=== PATIENT | female | born 1965 | race Caucasian/White ===

== ENCOUNTER 2019-01-17 14:06 | Observation (INO) ==
--- NOTE | 2019-01-17 14:17 | Emergency Department Note ---
Disposition Clinical Impression: AMS (altered mental status), Hyperglycemia Disposition: Admitted As Inpatient Condition: Fair Referrals: Ramon Taveras, [employer] [Primary Care Provider] - Forms: ED Satisfaction Letter Time of Disposition: 15:57 Neuro HPI - General Chief Complaint: ED Neuro Symptoms/Deficit Stated Complaint: weakness to right side, elevated glucose Time Seen by Provider: 01/17/19 14:09 Source: patient, family Mode of arrival: wheelchair Limitations: language barrier, altered mental status Nursing Notes Reviewed: Yes Vital Signs Reviewed: Yes - History of Present Illness HPI Narrative: Patient was apparently in route to her doctor's office visit when apparently 30 minutes prior to arrival she had a sudden onset of infusion difficulty speaking the son noticed that she was having marked weakness of the right hand side of the body. When they got to the doctor's office they did not immediate Accu-Chek was 330 something as was told to stay brought her into the ER in a wheelchair is brought over by the nurse practitioner directly to the ER. Upon arrival here to the emergency room the patient is confused her son tells us that this began about half an hour prior to arrival here to the ER is having trouble talking to us she is unable to follow commands her speech is slurred unable to specifically determine etiologies of what is going on at this time with the patient. Information is obtained through her son apparently sometime at about 4:00 after we had already worked the patient he advised that she had fallen out of bed and laid on the floor for an unknown period time until they got her back up in the bed but it was not until prior to arrival that she had the altered mental status and weakness side of the body. When her sugar was noted to be over 500 mL states that this happened once or and she ended up being in the hospital for a week and the same process had been determined at that time where she was worked up for possibility of a stroke. Patient son tells us though that she was at her baseline this morning until just prior to arrival and that she is only been out of her medications for less than 24 hours why they were going to the doctor's office all other systems have been reviewed and otherwise negative - Related Data Home Medications: Home Medications Medication Instructions Recorded Confirmed Citalopram [CeleXA] 20 mg PO DAILY 12/16/16 01/17/19 Gabapentin [Neurontin] 600 mg PO TID 12/16/16 01/17/19 Nitroglycerin [Nitrostat] 0.4 mg SL AD PRN 12/16/16 01/17/19 Tizanidine HCl [Zanaflex] 4 mg PO TID 12/16/16 01/17/19 Amitriptyline [Elavil] 50 mg PO HS 01/17/19 01/17/19 Amlodipine Besylate 10 mg PO DAILY 01/17/19 01/17/19 Aspirin [Lo-Dose Aspirin EC] 81 mg PO DAILY 01/17/19 01/17/19 Atorvastatin [Lipitor] 40 mg PO HS 01/17/19 01/17/19 BuPROPion XL (24 HR) [Wellbutrin 150 mg PO DAILY 01/17/19 01/17/19 XL] Cholecalciferol (D-3) [Vitamin D] 5,000 unit PO QWEEK 01/17/19 01/17/19 Exenatide Microspheres [Bydureon 2 mg SQ QWEEK 01/17/19 01/17/19 Pen] Imipramine HCl [Tofranil] 50 mg PO HS 01/17/19 01/17/19 Insulin ASPART [Novolog] 20 unit SQ TID 01/17/19 01/17/19 Insulin Glargine,Hum.rec.anlog 50 unit SQ HS 01/17/19 01/17/19 [Reginald Parekh] Lisinopril-HCTZ 20-12.5 [Prinzide 1 each PO DAILY 01/17/19 01/17/19 20-12.5] Metoprolol [Lopressor] 25 mg PO BID 01/17/19 01/17/19 [place]-3/Dha/Epa/Fish Oil [Fish Oil 1 each PO BID 01/17/19 01/17/19 1,000 mg Softgel] Ranitidine HCl [Acid Soyfreeze Operator] 150 mg PO BID 01/17/19 01/17/19 amLODIPine [Norvasc] 10 mg PO DAILY 01/17/19 01/17/19 buPROPion HCl [Zyban] 150 mg PO DAILY 01/17/19 01/17/19 hydrOXYzine HCl [Hydroxyzine HCl] 25 mg PO Q8H PRN 01/17/19 01/17/19 metFORMIN [Glucophage] 1,000 mg PO BIDWM 01/17/19 01/17/19 Allergies/Adverse Reactions: Allergies Allergy/AdvReac Type Severity Reaction Status Date / Time No Known Allergies Allergy Verified 10/31/16 21:39 All systems ED: reviewed and negative except as stated. Review of Systems: As Per HPI Constitutional: Reports: weakness. Denies: fever, chills Eyes: Denies: eye pain, eye discharge ENT ED: Reports: dysphagia. Denies: ear pain, throat pain Cardiovascular: Denies: chest pain, palpitations Respiratory: Denies: cough, dyspnea Gastrointestinal: Denies: abdominal pain, nausea, vomiting Genitourinary: Denies: urgency, dysuria Musculoskeletal: Denies: back pain Integumentary: Denies: rash, abrasion Neurological: Reports: headache, weakness, confusion Psychiatric: Denies: anxiety, depression Endocrine: Denies: fatigue Hematological/Lymphatic: Denies: easy bleeding Allergic/Immunologic: Denies: facial swelling Past Medical History - Past Medical History Attestation: Yes The following information was validated with the patient. 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 - Social History Smoking Status: Former smoker Smokeless Tobacco Status: No Alcohol use: Reports: none Drug use: Reports: none Physical Exam - General Limitations: altered mental status General appearance: alert, obtunded, in distress, obese - Head Head exam: atraumatic, normocephalic, normal inspection - Eye Eye exam: Present: normal appearance, PERRL, EOMI - ENT ENT exam: normal exam, normal oropharynx, mucous membranes moist, TM's normal bilaterally, normal external ear exam - Neck Neck exam: Present: normal inspection, full ROM, trachea midline - Chest Chest inspection: Present: normal inspection, symmetric chest wall rise - Respiratory Respiratory exam: Present: normal lung sounds bilaterally - Cardiovascular Cardiovascular exam: Present: regular rate, normal rhythm, normal heart sounds - Abdominal Exam Abdominal exam: Present: soft, Non-Tender, normal bowel sounds. Absent: mass, pulsatile mass - Extremities Exam Extremities exam: Present: normal inspection, normal capillary refill. Absent: tenderness, joint swelling, calf tenderness - Expanded Upper Extremity Exam Shoulder exam: Present: normal inspection Arm exam: Present: normal inspection Elbow exam: Present: normal inspection Forearm/Wrist exam: Present: normal inspection Hand exam: Present: normal inspection Neurosensory exam: Normal: radial nerve, ulnar nerve Vascular exam: Normal: capillary refill, radial pulse - Expanded Lower Extremity Exam Hip/Pelvis exam: Present: normal inspection. Absent: tenderness, swelling, abrasion, laceration Upper leg exam: Present: normal inspection Knee exam: Present: normal inspection Lower leg exam: Present: normal inspection Ankle exam: Present: normal inspection Foot/toe exam: Present: normal inspection Neurovascular/Tendon exam: Present: normal capillary refill, normal fine/light touch. Absent: motor deficit, sensory deficit, tendon deficit Gait: observed and normal - Back Exam Back exam: Present: normal inspection, full ROM. Absent: muscle spasm - Neurological Exam Neurological exam: Present: alert, motor sensory deficit, other (lethargic) - Psychiatric Psychiatric exam: Present: flat affect - Skin Skin exam: Present: warm, dry, intact, normal color - Other Other exam information: Morbidly obese female her speech is slurred having difficulty talking has trouble getting her words across of what she is trying to say when told to put her finger to her nose she is unable to process this she appears to be markedly confused right size to be slightly weaker than the left on examination she has little bit of a drift in the right leg to have it back down to the bed but 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 I spoke to [facility] and Dr. 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 Ng and he agreed with myself at thrombolytics at this time would not be appropriate because she appears to be back at her baseline it was most likely secondary to a hypoglycemic event patient is agreeable for patient is transferred to [facility] for further management I have spoke with Dr. Castro and Vital Signs Temperature 98 F 01/17/19 14:09 Pulse Rate 129 01/17/19 14:09 Respiratory Rate 22 01/17/19 14:09 Blood Pressure 154/92 01/17/19 14:09 O2 Sat by Pulse Oximetry 94 01/17/19 14:09 Temperature 98 F 01/17/19 14:09 Pulse Rate 88 01/17/19 15:37 Respiratory Rate 18 01/17/19 15:37 Blood Pressure 167/92 01/17/19 15:37 O2 Sat by Pulse Oximetry 94 01/17/19 15:37 Oxygen Delivery Oxygen Delivery Room Air Neuro Symptoms/Deficit - Differential Diagnosis Likely: cerebrovascular accident - Medical Records Medical records reviewed: Yes I reviewed the patient's medical records. - Lab Data Lab results reviewed: Yes I reviewed the patient's lab results. Result diagrams: 01/17/19 14:27 01/17/19 14:27 Lab Results 01/17/19 01/17/19 01/17/19 Range/Units 14:27 14:27 14:27 WBC 8.0 (4.3-11.1) K/mcL RBC 4.63 (3.82-4.97) M/mcL Hgb 14.0 (11.5-15.4) g/dL Hct 40.1 (35.3-44.9) % MCV 86.6 (83.0-100.0) fL MCH 30.2 (28.0-33.3) pg MCHC 34.9 (31.6-35.5) g/dL RDW 12.2 (11.5-14.5) % Plt Count 243 (140-400) K/mcL MPV 10.9 (9.4-12.4) fL Immature Gran % 0.7 (0-4) % Seg Neutrophils % 62.5 % Lymphocytes % 26.6 % Monocytes % 8.2 % Eosinophils % 1.5 % Basophils % 0.5 % Neutrophils # 5.0 (1.6-8.9) K/mcL Lymphocytes # 2.1 (0.6-4.6) K/mcL Monocytes # 0.7 (0.0-1.3) K/mcL Eosinophils # 0.1 (0.0-0.6) K/mcL Basophils # 0.0 (0.0-0.2) K/mcL PT 9.8 (9.4-12.1) Seconds INR 0.9 APTT 32.6 (26.0-36.0) Seconds Sodium (136-145) mEq/L Potassium (3.5-5.1) mEq/L Chloride (98-107) mEq/L Carbon Dioxide (23-29) mEq/L BUN (6-20) mg/dL Creatinine (0.60-1.20) mg/dL Est GFR ( Amer) (> 60) Est GFR (Non-Af Amer) (> 60) BUN/Creatinine Ratio (6-26) Glucose (70-105) mg/dL Calculated Osmolality (280-300) Calcium (8.6-10.3) mg/dL Phosphorus (2.7-4.5) mg/dL Magnesium (1.6-2.6) mg/dL Total Bilirubin (0.3-1.0) mg/dL AST (13-39) Units/L ALT (7-52) Units/L Alkaline Phosphatase (34-104) Units/L Troponin I (< 0.04) ng/mL Serum Total Protein (6.4-8.9) g/dL Albumin (3.5-5.7) g/dL Globulin (2.4-3.5) g/dL Albumin/Globulin Ratio (1.1-2.2) TSH (0.340-5.600) mcIU/mL Urine Color (Yellow) Urine Clarity (Clear) Urine pH (5.0-8.0) pH Units Ur Specific [place] (1.010-1.025) Urine Protein (Neg-Trace) mg/dL Urine Glucose (UA) (Normal) mg/dL Urine Ketones (Negative) mg/dL Urine Blood (Negative) Urine Nitrite (Negative) Urine Bilirubin (Negative) Urine Urobilinogen (Normal) mg/dL Ur Leukocyte Esterase (Negative) Urine Microscopic RBC (0-3) per hpf Urine Microscopic WBC (0-3) per hpf Ur Squamous Epith Cells (None-Few) per lpf Amorphous Sediment (Few) Urine Bacteria (None-Few) per hpf Urine Mucus (Few) Ur Culture Indicated? (NO) Urine Opiates Screen (Mulfhr=067) ng/mL Ur Buprenorphine Scrn (Cutoff=5) ng/mL Ur Oxycodone Screen (Cutoff= 100) ng/mL Ur Barbiturates Screen (Uusqyv=550) ng/mL Ur Phencyclidine Scrn (Cutoff=25) ng/mL Ur Amphetamines Screen (Jfdfio=6768) ng/mL U Benzodiazepines Scrn (Umjfjo=305) ng/mL Urine Cocaine Screen (Cutoff= 300) ng/mL U Marijuana (THC) Screen (Cutoff = 50) ng/mL Ur Drug Screen Interp 01/17/19 01/17/19 01/17/19 Range/Units 14:27 14:27 14:56 WBC (4.3-11.1) K/mcL RBC (3.82-4.97) M/mcL Hgb (11.5-15.4) g/dL Hct (35.3-44.9) % MCV (83.0-100.0) fL MCH (28.0-33.3) pg MCHC (31.6-35.5) g/dL RDW (11.5-14.5) % Plt Count (140-400) K/mcL MPV (9.4-12.4) fL Immature Gran % (0-4) % Seg Neutrophils % % Lymphocytes % % Monocytes % % Eosinophils % % Basophils % % Neutrophils # (1.6-8.9) K/mcL Lymphocytes # (0.6-4.6) K/mcL Monocytes # (0.0-1.3) K/mcL Eosinophils # (0.0-0.6) K/mcL Basophils # (0.0-0.2) K/mcL PT (9.4-12.1) Seconds INR APTT (26.0-36.0) Seconds Sodium 129 L (136-145) mEq/L Potassium 4.0 (3.5-5.1) mEq/L Chloride 94 L (98-107) mEq/L Carbon Dioxide 22 L (23-29) mEq/L BUN 24 H (6-20) mg/dL Creatinine 0.98 (0.60-1.20) mg/dL Est GFR ( Amer) > 60 (> 60) Est GFR (Non-Af Amer) 60 (> 60) BUN/Creatinine Ratio 24 (6-26) Glucose 677 H* (70-105) mg/dL Calculated Osmolality 304 H (280-300) Calcium 9.0 (8.6-10.3) mg/dL Phosphorus 3.3 (2.7-4.5) mg/dL Magnesium 1.7 (1.6-2.6) mg/dL Total Bilirubin 0.4 (0.3-1.0) mg/dL AST 14 (13-39) Units/L ALT 25 (7-52) Units/L Alkaline Phosphatase 102 (34-104) Units/L Troponin I < 0.03 (< 0.04) ng/mL Serum Total Protein 7.2 (6.4-8.9) g/dL Albumin 3.8 (3.5-5.7) g/dL Globulin 3.4 (2.4-3.5) g/dL Albumin/Globulin Ratio 1.1 (1.1-2.2) TSH 1.471 (0.340-5.600) mcIU/mL Urine Color Yellow (Yellow) Urine Clarity Slightly Cloudy A (Clear) Urine pH 6.0 (5.0-8.0) pH Units Ur Specific [place] <= 1.005 L (1.010-1.025) Urine Protein 30 H (Neg-Trace) mg/dL Urine Glucose (UA) >=1000 H (Normal) mg/dL Urine Ketones Negative (Negative) mg/dL Urine Blood Moderate H (Negative) Urine Nitrite Negative (Negative) Urine Bilirubin Negative (Negative) Urine Urobilinogen Normal (Normal) mg/dL Ur Leukocyte Esterase Negative (Negative) Urine Microscopic RBC 5-15 H (0-3) per hpf Urine Microscopic WBC 0-3 (0-3) per hpf Ur Squamous Epith Cells Few (None-Few) per lpf Amorphous Sediment Few (Few) Urine Bacteria Many H (None-Few) per hpf Urine Mucus Few (Few) Ur Culture Indicated? YES A (NO) Urine Opiates Screen (Lfesfx=091) ng/mL Ur Buprenorphine Scrn (Cutoff=5) ng/mL Ur Oxycodone Screen (Cutoff= 100) ng/mL Ur Barbiturates Screen (Fupkrd=291) ng/mL Ur Phencyclidine Scrn (Cutoff=25) ng/mL Ur Amphetamines Screen (Rvrrsq=6165) ng/mL U Benzodiazepines Scrn (Findem=230) ng/mL Urine Cocaine Screen (Cutoff= 300) ng/mL U Marijuana (THC) Screen (Cutoff = 50) ng/mL Ur Drug Screen Interp 01/17/19 Range/Units 14:56 WBC (4.3-11.1) K/mcL RBC (3.82-4.97) M/mcL Hgb (11.5-15.4) g/dL Hct (35.3-44.9) % MCV (83.0-100.0) fL MCH (28.0-33.3) pg MCHC (31.6-35.5) g/dL RDW (11.5-14.5) % Plt Count (140-400) K/mcL MPV (9.4-12.4) fL Immature Gran % (0-4) % Seg Neutrophils % % Lymphocytes % % Monocytes % % Eosinophils % % Basophils % % Neutrophils # (1.6-8.9) K/mcL Lymphocytes # (0.6-4.6) K/mcL Monocytes # (0.0-1.3) K/mcL Eosinophils # (0.0-0.6) K/mcL Basophils # (0.0-0.2) K/mcL PT (9.4-12.1) Seconds INR APTT (26.0-36.0) Seconds Sodium (136-145) mEq/L Potassium (3.5-5.1) mEq/L Chloride (98-107) mEq/L Carbon Dioxide (23-29) mEq/L BUN (6-20) mg/dL Creatinine (0.60-1.20) mg/dL Est GFR ( Amer) (> 60) Est GFR (Non-Af Amer) (> 60) BUN/Creatinine Ratio (6-26) Glucose (70-105) mg/dL Calculated Osmolality (280-300) Calcium (8.6-10.3) mg/dL Phosphorus (2.7-4.5) mg/dL Magnesium (1.6-2.6) mg/dL Total Bilirubin (0.3-1.0) mg/dL AST (13-39) Units/L ALT (7-52) Units/L Alkaline Phosphatase (34-104) Units/L Troponin I (< 0.04) ng/mL Serum Total Protein (6.4-8.9) g/dL Albumin (3.5-5.7) g/dL Globulin (2.4-3.5) g/dL Albumin/Globulin Ratio (1.1-2.2) TSH (0.340-5.600) mcIU/mL Urine Color (Yellow) Urine Clarity (Clear) Urine pH (5.0-8.0) pH Units Ur Specific [place] (1.010-1.025) Urine Protein (Neg-Trace) mg/dL Urine Glucose (UA) (Normal) mg/dL Urine Ketones (Negative) mg/dL Urine Blood (Negative) Urine Nitrite (Negative) Urine Bilirubin (Negative) Urine Urobilinogen (Normal) mg/dL Ur Leukocyte Esterase (Negative) Urine Microscopic RBC (0-3) per hpf Urine Microscopic WBC (0-3) per hpf Ur Squamous Epith Cells (None-Few) per lpf Amorphous Sediment (Few) Urine Bacteria (None-Few) per hpf Urine Mucus (Few) Ur Culture Indicated? (NO) Urine Opiates Screen Negative (Epppct=141) ng/mL Ur Buprenorphine Scrn Negative (Cutoff=5) ng/mL Ur Oxycodone Screen Negative (Cutoff= 100) ng/mL Ur Barbiturates Screen Negative (Retpjm=708) ng/mL Ur Phencyclidine Scrn Negative (Cutoff=25) ng/mL Ur Amphetamines Screen Negative (Ifwqsz=2074) ng/mL U Benzodiazepines Scrn Negative (Qkobqr=305) ng/mL Urine Cocaine Screen Negative (Cutoff= 300) ng/mL U Marijuana (THC) Screen Negative (Cutoff = 50) ng/mL Ur Drug Screen Interp See Below - Radiology Data Radiology results reviewed: Yes I reviewed the patient's radiology results. ITS Impressions Chest X-Ray 01/17/19 14:28 IMPRESSION: No acute cardiopulmonary disease. D/ /17/2019 15:14:04 Sean Salazar MD / braxton Interpreting Provider: Sean Salazar MD Head CT 01/17/19 14:28 IMPRESSION: 1. No acute intracranial abnormality. 2. Cerebral and cerebellar parenchymal volume loss with chronic microvascular white matter ischemic disease. Results were discussed with Dr. Headley at 1431 hours on 01/17/2019. D/ /17/2019 15:15:46 Umang Greenfield MD / braxton Interpreting Provider: Umang Greenfield MD - EKG Data EKG attestation: Yes I reviewed and interpreted this EKG. EKG results narrative: Sinus tach rate 128 IN 131 QRS 86 QT [address] segment elevation ischemic or injury pattern noted nonspecific T-wave changes related to rate NIH Stroke Scale - Level of Consciousness LOC: Drowsy, but arousable - LOC Questions LOC Questions: Answers both incorrectly - LOC Commands LOC Commands: Performs one correctly - Best Gaze Best Gaze: Partial gaze palsy - Visual Visual: Partial hemianopia - Facial Palsy Facial Palsy: Minor asymmetry on smiling, flattened nasolabial fold - Motor Arms Motor Arm-Left: No drift for 10 seconds Motor Arm-Right: Drift, does NOT hit bed - Motor Legs Motor Leg-Left: No drift for 5 seconds Motor Leg-Right: Some effort against gravity, limb drifts to bed - Limb Ataxia Limb Ataxia: Present in ONE limb - Sensory Sensory: Normal - Best Language Best Language: Severe aphasia. Examiner CAN NOT identify pictures from response - Dysarthria Dysarthria: Mild, slurs some words - Extinction and Inattention Extinction and Inattention: Inattention or extinction in ONE modality - NIHSS Total Score NIHSS Total Score: 15 TPA Checklist - LKW: 3-4.5 hrs Add. Warnings/Precautions Patient/family understanding: The patient/family members have been counseled and understood the risk, benefit, and alternatives of treatment. Critical Care Time Critical Care Time: Yes Total Critical Care Time: 45 Attestation: High probability clinically significant life-threatening deterioration is patient's condition is one the result patient being hyperglycemic strokelike presentation stroke alert being activated discussion and consultation with neuroradiology at [facility] for further care evaluation management of this patient and discussion with Dr. Castro for admission
[2019-01-17] MEDS ORDERED: 0.9 % Sodium Chloride 2,000 ML ONE (14:35)
[2019-01-17 14:36] LABS: Basophils % 0.5 %; Eosinophils # 0.1 K/mcL (0.0-0.6); Eosinophils % 1.5 %; Hematocrit 40.1 % (35.3-44.9); Immature Granulocytes % 0.7 % (0-4); Lymphocytes # 2.1 K/mcL (0.6-4.6); Lymphocytes % 26.6 %; Mean Corpuscular HGB Conc 34.9 g/dL (31.6-35.5); Mean Corpuscular Hemoglobin 30.2 pg (28.0-33.3); Mean Corpuscular Volume 86.6 fL (83.0-100.0); Mean Platelet Volume 10.9 fL (9.4-12.4); Monocytes # 0.7 K/mcL (0.0-1.3); Monocytes % 8.2 %; Platelet Count 243 K/mcL (140-400); Red Blood Count 4.63 M/mcL (3.82-4.97); Red Cell Distribution Width 12.2 % (11.5-14.5); Segmented Neutrophils % 62.5 %
[2019-01-17 14:42] LABS: INR 0.9; Prothrombin Time 9.8 Seconds (9.4-12.1)
[2019-01-17] MEDS ORDERED: Insulin Human Regular 10 UNIT in 0.9 % Sodium Chloride 10 ML IV ONE (14:45)
[2019-01-17] MEDS ORDERED: ALTEPLASE IVPB ONE ×2 (14:47)
[2019-01-17] MEDS ORDERED: LOK IVPB ONE (14:47)
[2019-01-17 14:55] LABS: Troponin I < 0.03 ng/mL (< 0.04)
[2019-01-17 14:58] LABS: Alanine Aminotransferase 25 Units/L (7-52); Albumin 3.8 g/dL (3.5-5.7); Albumin/Globulin Ratio 1.1 (1.1-2.2); Alkaline Phosphatase 102 Units/L (34-104); Aspartate Amino Transferase 14 Units/L (13-39); BUN/Creatinine Ratio 24 (6-26); Bilirubin,Total 0.4 mg/dL (0.3-1.0); Blood Urea Nitrogen 24 mg/dL (6-20); Carbon Dioxide 22 mEq/L (23-29); Chloride 94 mEq/L (98-107); Globulin 3.4 g/dL (2.4-3.5); Glucose 677 mg/dL (70-105); Magnesium 1.7 mg/dL (1.6-2.6); Osmolality,Calculated 304 (280-300); Phosphorous 3.3 mg/dL (2.7-4.5); Sodium 129 mEq/L (136-145); Total Protein 7.2 g/dL (6.4-8.9); eGFR For African Americans > 60 (> 60); eGFR For Non-African Americans 60 (> 60)
[2019-01-17 15:00] LABS: Bilirubin,Urine Negative (Negative); Blood,Urine Moderate (Negative); Clarity,Urine Slightly Cloudy (Clear); Color,Urine Yellow (Yellow); Glucose,Urine (UA) >=1000 mg/dL (Normal); Ketones,Urine Negative (Negative); Leukocyte Esterase,Urine Negative (Negative); Nitrite,Urine Negative (Negative); Protein,Urine 30 mg/dL (Neg-Trace); Specific Gravity,Urine <= 1.005 (1.010-1.025); Urobilinogen,Urine Normal (Normal)
[2019-01-17 15:06] LABS: Thyroid Stimulating Hormone 1.471 mcIU/mL (0.340-5.600)
[2019-01-17 15:10] LABS: Amorphous Sediment,Urine Few (Few); Amphetamine Screen,Urine Negative ng/mL (Cutoff=1000); Bacteria,Urine Many per hpf (None-Few); Barbiturate Screen,Urine Negative ng/mL (Cutoff=200); Benzodiazepines Screen,Urine Negative ng/mL (Cutoff=200); Cannabinoid Screen,Urine Negative ng/mL (Cutoff = 50); Cocaine Screen,Urine Negative ng/mL (Cutoff= 300); Opiate Screen,Urine Negative ng/mL (Cutoff=300); Phencyclidine Screen,Urine Negative ng/mL (Cutoff=25); Squamous Epithelial Cell,Urine Few per lpf (None-Few); WBC,Urine 0-3 per hpf (0-3)
[2019-01-17 15:12] LABS: Mucus,Urine Few (Few)
[2019-01-17] MEDS ORDERED: Ketorolac 30 MG/ML VIAL IVP ONE (17:30)
[2019-01-17] MEDS ORDERED: Naloxone 0.4 MG/ML INJ IVP PRN (19:24)
[2019-01-17] MEDS ORDERED: *HR* Dextrose 50 % in Water (Syg) 50 ML SYRINGE IVP PRN (19:24)
[2019-01-17] MEDS ORDERED: Nitroglycerin 0.4 MG TAB.SUBL SL PRN (19:24)
[2019-01-17] MEDS ORDERED: hydrOXYzine pamoate 25 MG CAPSULE PO PRN (19:24)
[2019-01-17] MEDS ORDERED: Dextrose Gel 15 GM/37.5 ML TUBE PO PRN ×2 (19:24)
[2019-01-17] MEDS ORDERED: D5% in Water 1,000 ML IVC PRN (19:24)
[2019-01-17] MEDS ORDERED: NON-FORMULARY MEDICATION 1 EACH EACH (Exenatide Microspheres [Bydureon Pen] 2 MG) SQ SCH (19:24)
[2019-01-17] MEDS ORDERED: Ondansetron 4 MG/2 ML VIAL IVP PRN (19:24)
[2019-01-17] MEDS: Famotidine 20 MG TABLET PO SCH (20:43)
[2019-01-17] MEDS: Gabapentin 300 MG CAPSULE PO SCH (20:43)
[2019-01-17] MEDS: tiZANidine 4 MG TABLET PO SCH (20:43)
[2019-01-17] MEDS: 0.9 % Sodium Chloride 1,000 ML IVC SCH (20:44)
[2019-01-17] MEDS: (Omega-3/Dha/Epa/Fish Oil [Fish Oil 1,000 Mg Softgel]) PO SCH (20:44)
[2019-01-17] MEDS: *HR* Metformin 500 MG TABLET PO SCH (20:50)
[2019-01-17] MEDS ORDERED: Insulin DETEMIR 100 UNIT/ML per UNIT SQ ONE (21:00)
[2019-01-17] MEDS ORDERED: INSULIN GLARGINE HUM REC ANLOG SQ SCH (21:00)
[2019-01-17] MEDS ORDERED: INSULIN ASPART 20 UNIT SQ SCH (21:00)
[2019-01-17] MEDS ORDERED: [UNRECOGNIZED DRUG - OTHER] SQ SCH (21:00)
[2019-01-18] MEDS: 0.9 % Sodium Chloride 1,000 ML IVC SCH (04:43)
[2019-01-18 06:26] LABS: Basophils % 0.4 %; Eosinophils # 0.2 K/mcL (0.0-0.6); Eosinophils % 1.8 %; Hematocrit 36.3 % (35.3-44.9); Hemoglobin 12.4 g/dL (11.5-15.4); Immature Granulocytes % 0.5 % (0-4); Lymphocytes % 30.7 %; Mean Corpuscular HGB Conc 34.2 g/dL (31.6-35.5); Mean Corpuscular Hemoglobin 30.1 pg (28.0-33.3); Mean Corpuscular Volume 88.1 fL (83.0-100.0); Mean Platelet Volume 11.5 fL (9.4-12.4); Monocytes # 0.8 K/mcL (0.0-1.3); Monocytes % 8.2 %; Neutrophils # 5.7 K/mcL (1.6-8.9); Platelet Count 245 K/mcL (140-400); Red Blood Count 4.12 M/mcL (3.82-4.97); Red Cell Distribution Width 12.1 % (11.5-14.5); Segmented Neutrophils % 58.4 %; White Blood Count 9.8 K/mcL (4.3-11.1)
[2019-01-18 07:01] LABS: Prothrombin Time 11.4 Seconds (9.4-12.1)
[2019-01-18 07:04] LABS: Activated Partial Thrombo Time 31.2 Seconds (26.0-36.0)
[2019-01-18 07:30] LABS: BUN/Creatinine Ratio 25 (6-26); Blood Urea Nitrogen 16 mg/dL (6-20); Calcium 8.1 mg/dL (8.6-10.3); Carbon Dioxide 24 mEq/L (23-29); Chloride 105 mEq/L (98-107); Glucose 269 mg/dL (70-105); Osmolality,Calculated 297 (280-300); Potassium 3.4 mEq/L (3.5-5.1); Sodium 138 mEq/L (136-145); eGFR For African Americans > 60 (> 60); eGFR For Non-African Americans > 60 (> 60)
[2019-01-18] MEDS: Insulin LISPRO 300 UNITS/3 ML VIAL SQ SCH ×3 (08:38→16:02)
[2019-01-18] MEDS: *HR* Metformin 500 MG TABLET PO SCH ×2 (08:39→16:02)
[2019-01-18] MEDS: Gabapentin 300 MG CAPSULE PO SCH ×3 (08:39→21:50)
[2019-01-18] MEDS: Aspirin Enteric Coated 81 MG Tablet PO SCH (08:39)
[2019-01-18] MEDS: Famotidine 20 MG TABLET PO SCH ×2 (08:40→21:50)
[2019-01-18] MEDS: hydroCHLOROthiazide 25 MG TABLET PO SCH (08:40)
[2019-01-18] MEDS: (Omega-3/Dha/Epa/Fish Oil [Fish Oil 1,000 Mg Softgel]) PO SCH ×2 (08:40→21:51)
[2019-01-18] MEDS: tiZANidine 4 MG TABLET PO SCH ×3 (08:40→21:51)
[2019-01-18] MEDS: BuPROPion XL (24 HR) 150 MG TABLET PO SCH (08:40)
[2019-01-18] MEDS: Cholecalciferol (D-3) 1,000 UNIT (25MCG) TABLET PO SCH (08:40)
[2019-01-18] MEDS: Lisinopril 20 MG TABLET PO SCH (08:40)
[2019-01-18] MEDS: amLODIPine 5 MG TABLET PO SCH (08:40)
[2019-01-18] MEDS ORDERED: BuPROPion XL (24 HR) 150 MG TABLET PO SCH (09:00)
[2019-01-18] MEDS ORDERED: NON-FORMULARY MEDICATION 1 EACH EACH (Amlodipine Besylate 10 MG) PO SCH (09:00)
[2019-01-18] MEDS ORDERED: Lisinopril-HCTZ 20-12.5mg TABLET PO SCH (09:00)
[2019-01-18 13:15] LABS: Estimated Average Glucose 301 mg/dl
--- NOTE | 2019-01-18 13:55 | Electrocardiograph Report ---
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
--- NOTE | 2019-01-18 14:27 | Internal Med History&Physical ---
Date of Encounter: 01/18/19 Time of Encounter: 12:15 Assessment and Plan (1) AMS (altered mental status) Current visit: Yes Status: Resolved Now appears back to baseline mental status with appropriate conversation and behavior. AMS likely due to hyperglycemia. Continue to monitor. Qualifiers: Altered mental status type: unspecified Qualified Code(s): R41.82 - Altered mental status, unspecified (2) Hyperglycemia Current visit: Yes Status: Acute Continue Glucophage, basal insulin, and Accu-Cheks with SSI. (3) DM type 2 (diabetes mellitus, type 2) Current visit: Yes Status: Chronic Poorly controlled. Hemoglobin A1c significantly elevated at 12.1%. Basal insulin dose will be increased. Continue Glucophage and weekly Bydureon. Qualifiers: Diabetes mellitus halfway insulin use: with termite control servicer use Diabetes mellitus complication status: without complication Qualified Code(s): E11.9 - Type 2 diabetes mellitus without complications; Z79.4 - long-term (current) use of insulin (4) Hypertension Current visit: Yes Status: Chronic Continue Norvasc, HCTZ, lisinopril, and Lopressor. Qualifiers: Hypertension type: essential hypertension Qualified Code(s): I10 - Essential (primary) hypertension (5) CAD (coronary artery disease) Current visit: Yes Status: Chronic Continue aspirin and Lopressor. Qualifiers: Coronary Disease-Associated Artery/Lesion type: [place] artery [place] vs. transplanted heart: [place] heart Associated angina: without angina Qualified Code(s): I25.10 - Atherosclerotic heart disease of [place] coronary artery without angina pectoris (6) GERD (gastroesophageal reflux disease) Current visit: Yes Status: Acute Continue symptomatic treatment as needed. Qualifiers: Esophagitis presence: esophagitis presence not specified Qualified Code(s): K21.9 - Gastro-esophageal reflux disease without esophagitis (7) Diabetic peripheral neuropathy Current visit: Yes Status: Acute Continue Neurontin and Elavil. (8) Hyperlipidemia Current visit: Yes Status: Chronic Continue Lipitor. Qualifiers: Hyperlipidemia type: unspecified Qualified Code(s): E78.5 - Hyperlipidemia, unspecified (9) Anxiety and depression Current visit: Yes Status: Acute Continue Celexa, Elavil, Wellbutrin, bupropion, and hydroxyzine. Internal Medicine - H&P: HPI Chief complaint: Altered mental status, weakness, hyperglycemia Admitted From: Emergency Dept Plans for Post Hospital Care: Home History of present illness: Ms. Shen is a 53 year old female who was sent to emergency room from her PCP office after she presented reporting she had fallen twice earlier in the day and had overall weakness with lightheadedness. She appeared to be confused. She was evaluated in emergency room and underwent stroke alert evaluation. Further workup showed blood glucose 677. She was treated for hyperglycemia with improvement in mentation and overall clinical status. She was admitted to [facility] floor for ongoing care needs. She was diagnosed with DM 2 approximately 2013. She reports checking her blood sugar approximately 4 times weekly with readings generally above 300 MG/DL. She admits she has missed several doses of her NovoLog insulin as well as basal insulin in the past week stating she is "too busy" to take it. Hemoglobin A1c was significantly elevated at 12.1% in emergency room. Endocrine history significant otherwise for hyperlipidemia but no known thyroid disease. Neurologic history is pertinent for diabetic peripheral neuropathy. She denies large distribution strokes or seizures. Past Med Surg Social Fam HX - Past Medical History Medical history: coronary artery disease, diabetes, hypertension, other Additional medical history: NEUROPATHY Psychiatric history: anxiety - Social History Smoking Status: Former smoker Smokeless Tobacco Status: No Alcohol use: none Drug use: none Internal Medicine - H&P: Meds Citalopram [CeleXA] 20 mg PO DAILY 12/16/16 [History] Gabapentin [Neurontin] 600 mg PO TID 12/16/16 [History] Nitroglycerin [Nitrostat] 0.4 mg SL AD PRN 12/16/16 [History] Tizanidine HCl [Zanaflex] 4 mg PO TID 12/16/16 [History] Amitriptyline [Elavil] 50 mg PO HS 01/17/19 [History] Amlodipine Besylate 10 mg PO DAILY 01/17/19 [History] Aspirin [Lo-Dose Aspirin EC] 81 mg PO DAILY 01/17/19 [History] Atorvastatin [Lipitor] 40 mg PO HS 01/17/19 [History] BuPROPion XL (24 HR) [Wellbutrin XL] 150 mg PO DAILY 01/17/19 [History] Cholecalciferol (D-3) [Vitamin D] 5,000 unit PO QWEEK 01/17/19 [History] Exenatide Microspheres [Bydureon Pen] 2 mg SQ QWEEK 01/17/19 [History] Imipramine HCl [Tofranil] 50 mg PO HS 01/17/19 [History] Insulin ASPART [Novolog] 20 unit SQ TID 01/17/19 [History] Insulin Glargine,Hum.rec.anlog [Toujeo Max Solostar] 50 unit SQ HS 01/17/19 [History] Lisinopril-HCTZ 20-12.5 [Prinzide 20-12.5] 1 each PO DAILY 01/17/19 [History] Metoprolol [Lopressor] 25 mg PO BID 01/17/19 [History] [place]-3/Dha/Epa/Fish Oil [Fish Oil 1,000 mg Softgel] 1 each PO BID 01/17/19 [History] Ranitidine HCl [Acid Logistics Program Manager] 150 mg PO BID 01/17/19 [History] amLODIPine [Norvasc] 10 mg PO DAILY 01/17/19 [History] buPROPion HCl [Zyban] 150 mg PO DAILY 01/17/19 [History] hydrOXYzine HCl [Hydroxyzine HCl] 25 mg PO Q8H PRN 01/17/19 [History] metFORMIN [Glucophage] 1,000 mg PO BIDWM 01/17/19 [History] Allergy/AdvReac Type Severity Reaction Status Date / Time No Known Allergies Allergy Verified 10/31/16 21:39 All Systems PM: A 10-system review of systems was performed and is negative for pertinent findings except as documented above in the HPI. Review of systems: Gen.: She states her weight has increased approximately 30 pounds in the past year, unintentionally Cardiovascular: She reports history of hypertension and has ASHD with [place] 2001. She states she has never had a heart cath. She reports an exercise stress test approximately 2006 resulted in no recommendation for further workup. She claims a diagnosis of heart failure and a childhood heart murmur. She denies DVT or pulmonary embolus. Respiratory: She is a lifelong nonsmoker and denies chronic lung disease. She reports negative GENARO workup in the past. GI: She has GERD. She denies disorders of her liver gallbladder or exocrine pancreas : She denies hematuria dysuria or kidney stones Neurologic: As per history of present illness Endocrine: As per history of present illness Hematology/oncology: She denies blood disorders cancers or anemia Psychiatric: She has depression and anxiety. She states at times she cries without obvious reason. [place] skeletal: She states she has diffuse pain in her hands and fingers. She denies known gout or other bone joint or muscle disorders. - Constitutional Vitals: Temp Pulse Resp BP Pulse Ox 98.6 F 86 16 100/60 95 01/18/19 14:14 01/18/19 14:14 01/18/19 14:14 01/18/19 14:14 01/18/19 14:14 Exam: Gen.: She is a well-developed obese female lying in bed who appears in no acute distress at present time HEENT: Head is atraumatic and normocephalic. Eyes: EOMI. There is no scleral icterus. Mouth: Mucosa is moist. Neck: She has large neck. There is no thyromegaly or adenopathy noted. Heart: Regular without murmurs gallops or ectopics Lungs: No wheezes or crackles are heard. Abdomen: She has a large abdomen. It is nontender to palpation. No masses or guarding are noted. Extremities: There is no cyanosis edema or clubbing noted. Dorsalis pedis and posterior tibial pulses are trace palpable bilaterally. Neurologic: Mental status: She is talkative and a good historian. Cranial nerves: Smile is symmetric. Forehead wrinkles bilaterally. Tongue protrudes midline. EOMI. Motor: There is no pronator drift. Cerebellar: Finger to nose is intact bilaterally. Skin: Warm and dry Internal Med - H&P Results - Labs CBC & Chem 7: 01/18/19 05:35 01/18/19 05:35 Labs: Short CBC 01/17/19 01/18/19 Range/Units 14:27 05:35 WBC 8.0 9.8 (4.3-11.1) K/mcL Hgb 14.0 12.4 D (11.5-15.4) g/dL Hct 40.1 36.3 (35.3-44.9) % Plt Count 243 245 (140-400) K/mcL Neutrophils # 5.0 5.7 (1.6-8.9) K/mcL BMP 01/17/19 01/18/19 14:27 05:35 Sodium 129 L 138 D Potassium 4.0 3.4 L Chloride 94 L 105 Carbon Dioxide 22 L 24 BUN 24 H 16 Creatinine 0.98 0.65 Glucose 677 H* 269 H Calcium 9.0 8.1 L Cardiac Enzymes 01/17/19 Range/Units 14:27 Troponin I < 0.03 (< 0.04) ng/mL Liver Function 01/17/19 Range/Units 14:27 Total Bilirubin 0.4 (0.3-1.0) mg/dL AST 14 (13-39) Units/L ALT 25 (7-52) Units/L Alkaline Phosphatase 102 (34-104) Units/L Albumin 3.8 (3.5-5.7) g/dL Urine 01/17/19 Range/Units 14:56 Urine Color Yellow (Yellow) Urine Clarity Slightly Cloudy A (Clear) Urine pH 6.0 (5.0-8.0) pH Units Ur Specific [place] <= 1.005 L (1.010-1.025) Urine Protein 30 H (Neg-Trace) mg/dL Urine Glucose (UA) >=1000 H (Normal) mg/dL - Impressions ITS Impressions Chest X-Ray 01/17/19 14:28 IMPRESSION: No acute cardiopulmonary disease. D/ /17/2019 15:14:04 Sean Salazar MD / braxton Interpreting Provider: Sean Salazar MD Head CT 01/17/19 14:28 IMPRESSION: 1. No acute intracranial abnormality. 2. Cerebral and cerebellar parenchymal volume loss with chronic microvascular white matter ischemic disease. Results were discussed with Dr. Headley at 1431 hours on 01/17/2019. D/ /17/2019 15:15:46 Umang Greenfield MD / braxton Interpreting Provider: Umang Greenfield MD
[2019-01-18] MEDS ORDERED: *HR* Dextrose 50 % in Water (Vial) 50 ML VIAL IVP PRN (14:45)
[2019-01-18 17:16] LABS: Vitamin B12 190 pg/mL (250-1100)
[2019-01-18 17:22] LABS: Vitamin D 25 Hydroxy 13 ng/mL (30-80)
[2019-01-18] MEDS ORDERED: Insulin DETEMIR 100 UNIT/ML X5UNITS SQ SCH ×2 (21:00)
[2019-01-19 05:20] LABS: Basophils # 0.1 K/mcL (0.0-0.2); Basophils % 0.6 %; Eosinophils # 0.2 K/mcL (0.0-0.6); Eosinophils % 2.7 %; Hematocrit 39.4 % (35.3-44.9); Lymphocytes # 3.9 K/mcL (0.6-4.6); Lymphocytes % 46.2 %; Mean Corpuscular Hemoglobin 29.8 pg (28.0-33.3); Mean Corpuscular Volume 90.4 fL (83.0-100.0); Mean Platelet Volume 11.4 fL (9.4-12.4); Monocytes # 0.6 K/mcL (0.0-1.3); Monocytes % 6.8 %; Neutrophils # 3.6 K/mcL (1.6-8.9); Platelet Count 242 K/mcL (140-400); Red Blood Count 4.36 M/mcL (3.82-4.97); Red Cell Distribution Width 12.1 % (11.5-14.5); Segmented Neutrophils % 42.7 %; White Blood Count 8.4 K/mcL (4.3-11.1)
[2019-01-19 05:45] LABS: Alanine Aminotransferase 20 Units/L (7-52); Albumin 3.2 g/dL (3.5-5.7); Albumin/Globulin Ratio 1.1 (1.1-2.2); Alkaline Phosphatase 80 Units/L (34-104); Aspartate Amino Transferase 13 Units/L (13-39); BUN/Creatinine Ratio 25 (6-26); Bilirubin,Total 0.4 mg/dL (0.3-1.0); Blood Urea Nitrogen 20 mg/dL (6-20); Calcium 8.8 mg/dL (8.6-10.3); Carbon Dioxide 28 mEq/L (23-29); Chloride 101 mEq/L (98-107); Glucose 389 mg/dL (70-105); Osmolality,Calculated 299 (280-300); Potassium 3.9 mEq/L (3.5-5.1); Sodium 135 mEq/L (136-145); Total Protein 6.2 g/dL (6.4-8.9); eGFR For African Americans > 60 (> 60); eGFR For Non-African Americans > 60 (> 60)
[2019-01-19] MEDS: Insulin LISPRO 300 UNITS/3 ML VIAL SQ SCH ×3 (09:25→15:57)
[2019-01-19] MEDS: *HR* Metformin 500 MG TABLET PO SCH ×2 (09:26→15:56)
[2019-01-19] MEDS: hydroCHLOROthiazide 25 MG TABLET PO SCH (09:26)
[2019-01-19] MEDS: Aspirin Enteric Coated 81 MG Tablet PO SCH (09:26)
[2019-01-19] MEDS: BuPROPion XL (24 HR) 150 MG TABLET PO SCH (09:26)
[2019-01-19] MEDS: Lisinopril 20 MG TABLET PO SCH (09:26)
[2019-01-19] MEDS: Gabapentin 300 MG CAPSULE PO SCH ×2 (09:26→15:55)
[2019-01-19] MEDS: Famotidine 20 MG TABLET PO SCH (09:26)
[2019-01-19] MEDS: Cholecalciferol (D-3) 1,000 UNIT (25MCG) TABLET PO SCH (09:27)
[2019-01-19] MEDS: amLODIPine 5 MG TABLET PO SCH (09:27)
[2019-01-19] MEDS ORDERED: Cyanocobalamin (B-12) 1,000 MCG/ML VIAL IM ONE (09:35)
[2019-01-19] MEDS: tiZANidine 4 MG TABLET PO SCH ×2 (09:36→15:55)
--- NOTE | 2019-01-19 09:46 | Discharge Summary ---
Date of Encounter: 01/19/19 Time of Encounter: 09:27 - Discharge Diagnosis (1) AMS (altered mental status) Priority: Primary Status: Resolved Qualifiers: Altered mental status type: unspecified Qualified Code(s): R41.82 - Altered mental status, unspecified (2) Hyperglycemia Priority: Secondary Status: Acute (3) DM type 2 (diabetes mellitus, type 2) Priority: Secondary Status: Chronic Qualifiers: Diabetes mellitus terminal carman insulin use: with terminal carman use Diabetes mellitus complication status: without complication Qualified Code(s): E11.9 - Type 2 diabetes mellitus without complications; Z79.4 - halfway (current) use of insulin (4) Hypertension Priority: Secondary Status: Chronic Qualifiers: Hypertension type: essential hypertension Qualified Code(s): I10 - Essential (primary) hypertension (5) CAD (coronary artery disease) Priority: Secondary Status: Chronic Qualifiers: Coronary Disease-Associated Artery/Lesion type: [place] artery [place] vs. transplanted heart: [place] heart Associated angina: without angina Qualified Code(s): I25.10 - Atherosclerotic heart disease of [place] coronary artery without angina pectoris (6) GERD (gastroesophageal reflux disease) Priority: Secondary Status: Acute Qualifiers: Esophagitis presence: esophagitis presence not specified Qualified Code(s): K21.9 - Gastro-esophageal reflux disease without esophagitis (7) Diabetic peripheral neuropathy Priority: Secondary Status: Acute (8) Hyperlipidemia Priority: Secondary Status: Chronic Qualifiers: Hyperlipidemia type: unspecified Qualified Code(s): E78.5 - Hyperlipidemia, unspecified (9) Anxiety and depression Priority: Secondary Status: Acute Hospital course: Ms. Shen is a 53 year old female who was sent to emergency room from her PCP office after she presented reporting she had fallen twice earlier in the day and had overall weakness with lightheadedness. She appeared to be confused. She was evaluated in emergency room and underwent stroke alert evaluation. Further workup showed blood glucose 677. She was treated for hyperglycemia with improvement in mentation and overall clinical status. She was admitted to [facility] floor for ongoing care needs. I saw her on January 18 and performed a history and physical. By the time I saw her she appeared back to her baseline mental status. She had no further altered mental status episodes during her hospital stay. Basal insulin dose was increased and Glucophage was continued. Accu-Cheks showed consistently high readings. Her basal insulin dose will be increased further at discharge. She reported she was taking NovoLog 60 units with meals. I explained I was increa sing her basal insulin dose in anticipation of decreasing her mealtime Humalog. Her PCP can continue to monitor and adjust doses further as needed. Additional lab work showed B12 level low at 190. She will be given a B12 injection prior to discharge and start oral B12 supplement. Vitamin D level returned significantly low at 13. Her vitamin D dose will be increased to 5000 units on MWF. There were no other new problems and on January 19 she felt stable for discharge home. She will follow with her PCP Ibis Rolle CNP within 1 week. - Time Spent with Patient Total time spent providing and/or coordinating discharge services: - Discharge Medications Prescriptions: New Cyanocobalamin (B-12) [Vitamin B12] 1,000 mcg PO DAILY #30 tablet Ondansetron ODT [Zofran ODT] 4 mg SL Q4HR #12 tab.rapdis Continued Tizanidine HCl [Zanaflex] 4 mg PO TID Nitroglycerin [Nitrostat] 0.4 mg SL AD PRN PRN Reason: Chest Pain Gabapentin [Neurontin] 600 mg PO TID Citalopram [CeleXA] 20 mg PO DAILY Ranitidine HCl [Acid Statistician Theoretical] 150 mg PO BID [place]-3/Dha/Epa/Fish Oil [Fish Oil 1,000 mg Softgel] 1 each PO BID BuPROPion XL (24 HR) [Wellbutrin Xl] 150 mg PO DAILY Amitriptyline [Elavil] 50 mg PO HS Lisinopril-HCTZ 20-12.5 [Prinzide 20-12.5] 1 each PO DAILY amLODIPine [Norvasc] 10 mg PO DAILY Imipramine HCl [Tofranil] 50 mg PO HS hydrOXYzine HCl [Hydroxyzine HCl] 25 mg PO Q8H PRN PRN Reason: Anxiety Atorvastatin [Lipitor] 40 mg PO HS Metoprolol [Lopressor] 25 mg PO BID metFORMIN [Glucophage] 1,000 mg PO BIDWM buPROPion HCl [Zyban] 150 mg PO DAILY Amlodipine Besylate 10 mg PO DAILY Aspirin [Lo-Dose Aspirin EC] 81 mg PO DAILY Exenatide Microspheres [Bydureon Pen] 2 mg SQ QWEEK Changed Insulin ASPART [Novolog] 30 unit SQ TID 30 Days Insulin Glargine,Hum.rec.anlog [Reginald Fryostar] 75 unit SQ HS #0 Cholecalciferol (D-3) [Vitamin D] 5,000 unit PO QMWF #60 tab Home Medications: Citalopram [CeleXA] 20 mg PO DAILY 12/16/16 [History] Gabapentin [Neurontin] 600 mg PO TID 12/16/16 [History] Nitroglycerin [Nitrostat] 0.4 mg SL AD PRN 12/16/16 [History] Tizanidine HCl [Zanaflex] 4 mg PO TID 12/16/16 [History] Amitriptyline [Elavil] 50 mg PO HS 01/17/19 [History] Amlodipine Besylate 10 mg PO DAILY 01/17/19 [History] Aspirin [Lo-Dose Aspirin EC] 81 mg PO DAILY 01/17/19 [History] Atorvastatin [Lipitor] 40 mg PO HS 01/17/19 [History] BuPROPion XL (24 HR) [Wellbutrin Xl] 150 mg PO DAILY 01/17/19 [History] Exenatide Microspheres [Bydureon Pen] 2 mg SQ QWEEK 01/17/19 [History] Imipramine HCl [Tofranil] 50 mg PO HS 01/17/19 [History] Lisinopril-HCTZ 20-12.5 [Prinzide 20-12.5] 1 each PO DAILY 01/17/19 [History] Metoprolol [Lopressor] 25 mg PO BID 01/17/19 [History] [place]-3/Dha/Epa/Fish Oil [Fish Oil 1,000 mg Softgel] 1 each PO BID 01/17/19 [History] Ranitidine HCl [Acid Statistician Theoretical] 150 mg PO BID 01/17/19 [History] amLODIPine [Norvasc] 10 mg PO DAILY 01/17/19 [History] buPROPion HCl [Zyban] 150 mg PO DAILY 01/17/19 [History] hydrOXYzine HCl [Hydroxyzine HCl] 25 mg PO Q8H PRN 01/17/19 [History] metFORMIN [Glucophage] 1,000 mg PO BIDWM 01/17/19 [History] Cholecalciferol (D-3) [Vitamin D] 5,000 unit PO QMWF #60 tab 01/19/19 [Rx] Cyanocobalamin (B-12) [Vitamin B12] 1,000 mcg PO DAILY #30 tablet 01/19/19 [Rx] Insulin ASPART [Novolog] 30 unit SQ TID 30 Days 01/19/19 [Rx] Insulin Glargine,Hum.rec.anlog [Toujeo Max Solostar] 75 unit SQ HS #0 01/19/19 [Rx] Ondansetron ODT [Zofran ODT] 4 mg SL Q4HR #12 tab.rapdis 01/19/19 [Rx] Allergies/Adverse Reactions: Allergy/AdvReac Type Severity Reaction Status Date / Time No Known Allergies Allergy Verified 10/31/16 21:39 Date of admission: 01/17/19 17:09 Primary care physician: Ibis Rolle CNP - Constitutional Vitals: Temp Pulse Resp BP Pulse Ox 97.5 F L 91 18 195/100 96 01/19/19 06:43 01/19/19 06:43 01/19/19 06:43 01/19/19 06:43 01/19/19 06:43 - Patient Status Disposition: Home, Self-Care Condition: Fair - Discharge Instructions Follow Up With: Ibis Rolle CNP [Advanced Practice Nurse] - 1 week - Diet and Activity Activity: resume usual activities as tolerated Diet: diabetic diet
[2019-01-19 10:03] VITALS: BP 158/92
[2019-01-19] MEDS: (Omega-3/Dha/Epa/Fish Oil [Fish Oil 1,000 Mg Softgel]) PO SCH (10:50)
== END 2019-01-19 17:28 | disposition home or self-care (01) ==
LOC: EMEROOPIK 14:06 → INPPIK 14:06
PROVIDERS: ADMIT Internal Medicine; ATTEND Internal Medicine